=== PATIENT | female | born 1950 ===

== ENCOUNTER 2023-09-04 09:00 | Inpatient (IN) | payer OTHER ==
[~2023-09-04] VITALS: Ht 162.6 cm; Wt 60.3 kg
[2023-09-04] MEDS ORDERED: TOPROL XL50 M1 PO (12:03)
[2023-09-04] MEDS ORDERED: LIPITOR20 MG PO (12:03)
[2023-09-04] MEDS ORDERED: GLIMEPIRIDE1 MG (12:03)
[2023-09-04] MEDS ORDERED: LOSARTAN POTASS50 MG PO (12:03)
[2023-09-04] MEDS ORDERED: ELIQUIS5 MG PO (12:03)
[2023-09-04] MEDS ORDERED: PLAQUENIL PO (12:04)
[2023-09-17] MEDS ORDERED: GLIMEPIRIDE1 M1 (11:14)
[2023-09-17] MEDS ORDERED: HYDROXYCHLOROQ200 MG (11:15)
[2023-09-17 14:39] LABS: HEMATOCRIT 33.9 % (36.0-45.00); HEMOGLOBIN 10.9 g/dL (12.0-15.00); MEAN CELL VOLUME 78.4 fL (80.00-100.00); MEAN CORPUSCULAR HEMOGLOBIN 25.2 pg (27.00-32.0); MEAN CORPUSCULAR HGB CONC 32.1 g/dl (32.0-36.0); PLATELET COUNT 213 K/uL (150-450); RED BLOOD COUNT 4.32 M/uL (4.00-6.00); RED CELL DISTRIBUTION WIDTH 15.1 % (11.5-14.5)
[2023-09-17 15:10] LABS: ALBUMIN 2.9 gm/dL (3.4-5.0); CALCIUM 9.2 mg/dL (8.5-10.1); CREATININE SERUM 0.9 mg/dL (0.55-1.02); GFR 61.72; MAGNESIUM 1.9 mg/dL (1.8-2.4); PHOSPHOROUS 3.5 mg/dL (2.5-4.9); POTASSIUM 4.12 mEq/L (3.5-5.1)
[2023-09-18 06:36] LABS: HEMATOCRIT 36.8 % (36.0-45.00); MEAN CORPUSCULAR HEMOGLOBIN 24.8 pg (27.00-32.0); MEAN CORPUSCULAR HGB CONC 32.6 g/dl (32.0-36.0); PLATELET COUNT 249 K/uL (150-450); RED BLOOD COUNT 4.85 M/uL (4.00-6.00); RED CELL DISTRIBUTION WIDTH 15.7 % (11.5-14.5)
[2023-09-18 06:56] LABS: ALBUMIN 3.1 gm/dL (3.4-5.0); CALCIUM 8.6 mg/dL (8.5-10.1); CREATININE SERUM 0.86 mg/dL (0.55-1.02); GFR 65.05; MAGNESIUM 1.7 mg/dL (1.8-2.4); PHOSPHOROUS 2.7 mg/dL (2.5-4.9); POTASSIUM 3.84 mEq/L (3.5-5.1)
[2023-09-19 06:18] LABS: HEMATOCRIT 33.1 % (36.0-45.00); HEMOGLOBIN 10.7 g/dL (12.0-15.00); MEAN CELL VOLUME 76.2 fL (80.00-100.00); MEAN CORPUSCULAR HEMOGLOBIN 24.7 pg (27.00-32.0); MEAN CORPUSCULAR HGB CONC 32.3 g/dl (32.0-36.0); PLATELET COUNT 209 K/uL (150-450); RED BLOOD COUNT 4.35 M/uL (4.00-6.00); RED CELL DISTRIBUTION WIDTH 15.4 % (11.5-14.5)
[2023-09-19 06:49] LABS: CALCIUM 8.2 mg/dL (8.5-10.1); CREATININE SERUM 0.86 mg/dL (0.55-1.02); GFR 65.05; MAGNESIUM 2.1 mg/dL (1.8-2.4); POTASSIUM 3.5 mEq/L (3.5-5.1)
[2023-09-19 08:07] LABS: PHOSPHOROUS 1.9 mg/dL (2.5-4.9)
[2023-09-20] MEDS ORDERED: PEPCID AC20 MG PO (12:39)
[2023-09-20] MEDS ORDERED: HYOSCYAMINE0.125 M1 SL (12:39)
[2023-09-20] MEDS ORDERED: TRAM1TAB98 PO (12:39)
[2023-09-20] MEDS ORDERED: INTESTINEX680 M1 PO (12:39)
== END 2023-09-20 13:27 | disposition home or self-care (01) | DRG 331 ==
LOC: O/R 09-17 06:15 → SURG 09-17 06:15 → SURH 09-17 09:00 → SURG 09-17 14:02 → SURH 09-17 14:30 → SURG 09-20 13:27
PROVIDERS: Internal Medicine Geriatric Medicine; ADMIT Surgery; ATTEND Surgery
PROC: 0DBP4ZZ Excision of Rectum, Percutaneous Endoscopic Approach (ICD-10-PCS; 2023-09-17)
PROC: 0DJD8ZZ Inspection of Lower Intestinal Tract, Via Natural or Artificial Opening Endoscopic (ICD-10-PCS; 2023-09-17)
PROC: 0DTN4ZZ Resection of Sigmoid Colon, Percutaneous Endoscopic Approach (ICD-10-PCS; principal; 2023-09-17 14:30)
DX: K57.20 Diverticulitis of large intestine with perforation and abscess without bleeding (principal); R19.5 Other fecal abnormalities